=== PATIENT | male | born 1975 | race Caucasian/White ===

== ENCOUNTER → 2020-11-18 | Outpatient (CLI) | payer BC | END | disposition home or self-care (01) | LOC: RADCTMAIN 16:59 | PROVIDERS: ATTEND Nurse Practitioner | DX: Z53.9 Procedure and treatment not carried out, unspecified reason (principal) ==

== ENCOUNTER → 2020-11-18 | Outpatient (CLI) | payer BC ==
--- NOTE | 2020-11-18 17:37 | XR ---
EXAMINATION TYPE: XR KUB DATE OF EXAM: 11/18/2020 COMPARISON: 11/07/2015 HISTORY: Lower abdominal pain TECHNIQUE: FINDINGS: Single supine view shows some phleboliths in the pelvis. There is small calcifications over the left kidney that measure up to 3 mm. There is no sign of intestinal obstruction or pneumoperiton eum. Fecal pattern is normal. I see no evidence of a mass. IMPRESSION: Tiny calcifications over the left kidney probably not changed compared to old exam. Nonac [place] abdomen.
--- NOTE | 2020-11-18 17:42 | CT ---
EXAMINATION TYPE: CT abdomen pelvis wo con DATE OF EXAM: 11/18/2020 COMPARISON: None HISTORY: Pelvic pain and hematuria. CT DLP: 379.3 mGycm Automated exposure control for dose reduction was used. Images obtained from the diaphragm to the floor the pelvis without contrast. Lung bases are clear. There is no pleural effusion. Heart size is normal. There is no pericardial eff usion. Liver spleen stomach pancreas gallbladder appear normal. The bile ducts are not dilated. There is no adrenal mass. Kidneys have normal size and contour. There is no hydronephrosis. Left uret er slightly larger than the right. There are a few small calculi in the lower pole left kidney that m easure up to 5 x 3 mm. I see no definite calculi in the right kidney. There is no retroperitoneal clarence nopathy. Appendix appears normal. Bladder distends smoothly. There is 2 mm calcification in the depen dent urinary bladder. There is no inguinal hernia. There is no evidence of pelvic mass. There are mul tiple phleboliths in the pelvis. There is no mesenteric edema. There is no ascites or free air. There is no evidence of bowel obstruct ion. The lumbar vertebra have normal alignment. Disc spaces are fairly normal. The bony pelvis is intact. Hip joints are intact. IMPRESSION: Small calculi lower pole left kidney similar to old exam. Small bladder calculus. No definite uretera l calculus. There is changing pattern of renal calculi compared to old exam.
== END | disposition home or self-care (01) ==
LOC: RADXRMAIN 17:01
PROVIDERS: ATTEND Nurse Practitioner
DX: N20.0 Calculus of kidney (principal); N21.0 Calculus in bladder; N28.89 Other specified disorders of kidney and ureter
CPT/HCPCS: 74018; 74176

== ENCOUNTER → 2021-11-23 | Outpatient (CLI) | payer BC ==
--- NOTE | 2021-11-23 18:24 | XR ---
EXAMINATION TYPE: XR KUB DATE OF EXAM: 11/23/2021 Comparison: 11/18/2020 Clinical History: 46-year-old male N20.0 Findings: After the bowel gas pattern. Mild overall stool burden. Air and stool extends distally to the rectum. There may be subtle faint nonobstructive 5 mm left lower pole renal calculus, unchanged from prior. Multiple pelvic phlebolith. Impression: Faint 5 mm nonobstructive left lower pole renal calculus. Multiple pelvic phleboliths.
== END | disposition home or self-care (01) ==
LOC: RADXRMAIN 09:34
PROVIDERS: ATTEND Urology
DX: N20.0 Calculus of kidney (principal)
CPT/HCPCS: 74018

== ENCOUNTER → 2022-03-23 | Outpatient (CLI) | payer BC ==
--- NOTE | 2022-03-23 11:48 | XR ---
EXAMINATION TYPE: XR KUB DATE OF EXAM: 03/23/2022 10:30 AM INDICATION: Patient age:Male; 46 years old; Reason for study: N20.1 CALCULUS URETER; COMPARISON: None. TECHNIQUE: One radiographic view of the abdomen was obtained. FINDINGS: The bowel gas pattern is nonspecific without dilated loops of small or large bowel. There i s no evidence for organomegaly or pneumoperitoneum. The osseous structures are intact. No abnormal calcifications are present. Fecal material and gas are demonstrated throughout the colon and rectum. Scattered pelvic phleboliths noted. No definitive renal calculi. IMPRESSION: 1. Nonspecific bowel gas pattern without radiographic evidence for acute process. 2. Scattered pelvic calcifications is likely representing phleboliths.
== END | disposition home or self-care (01) ==
LOC: LABWHC1 09:52
PROVIDERS: ATTEND Urology
DX: N20.1 Calculus of ureter (principal)
CPT/HCPCS: 74018

== ENCOUNTER → 2022-04-05 | Outpatient (CLI) | payer BC ==
--- NOTE | 2022-04-05 09:43 | CT ---
EXAMINATION TYPE: CT abdomen pelvis wo con DATE OF EXAM: 04/05/2022 COMPARISON: 11/18/2020 HISTORY: 46-year-old male N2 0.1, Calculus of ureter CT DLP: 384.4 mGycm. Automated exposure control for dose reduction was used. TECHNIQUE: Contiguous axial scanning of the abdomen and pelvis without IV contrast. Coronal and sagit olu reconstructions performed. FINDINGS: Heart normal size without pericardial effusion. Lung bases clear without pleural effusion. Noncontrast appearance of the liver, gallbladder, adrenal glands, spleen, and pancreas within normal limits. 5 mm nonobstructive left lower pole renal stone. No hydronephrosis on either side. There is a [address] one in the distal left ureter though without any significant hydronephrosis. The finding is new jorge red to 11/18/2020. No dilated small bowel, free fluid, or free air. No mesenteric or retroperitoneal lymphadenopathy. Normal appendix. Mild to moderate stool burden. Probably redundant sigmoid colon. No pericolonic infl ammatory change. Bladder partially distended. Numerous pelvic phleboliths. No abnormal fluid collection in the pelvis or pelvic lymphadenopathy. Bones: Mild degenerative change of the hips. No osseous destructive process. IMPRESSION: 1. A 7 mm stone at the distal left ureter, new from 11/18/2020, but without any significant hydroneph rosis. 2. Nonobstructive 5 mm stone at the lower pole of the left kidney.
== END | disposition home or self-care (01) ==
LOC: RADCTMAIN 08:21
PROVIDERS: ATTEND Urology
DX: N20.1 Calculus of ureter (principal)
CPT/HCPCS: 74176

== ENCOUNTER → 2022-05-04 | Outpatient (CLI) | payer BC ==
[2022-05-04 15:51] LABS: Appearance,Urine Clear (Clear); Bilirubin,Urine Negative (Negative); Blood,Urine Trace (Negative); Color,Urine Yellow (Yellow); Ketones,Urine Negative (Negative); Nitrite,Urine Negative (Negative); Specific Gravity,Urine 1.013 (1.001-1.030); Urobilinogen,Urine 0.2 (0.2,1.0)
[2022-05-04 16:00] LABS: Bacteria,Urine None Seen /HPF (None Seen); Basophils # (A) 0.09 X 10*3/uL (0.00-0.10); Basophils % (A) 1.2 %; Eosinophils # (A) 0.29 X 10*3/uL (0.04-0.35); Eosinophils % (A) 3.9 %; HCT 41.2 % (39.6-50.0); HGB 13.6 g/dL (13.0-17.0); Immature Grans, Automated 0.4 %; Lymphocytes # (A) 3.36 X 10*3/uL (0.90-5.00); Lymphocytes % (A) 45.5 %; MCH 29.8 pg (27.0-32.0); MCV 90.4 fL (80.0-97.0); Mean Platelet Volume 10.2 fL (9.5-12.2); Monocytes # (A) 0.56 X 10*3/uL (0.20-1.00); Monocytes % (A) 7.6 %; NRBC Per 100 WBC 0 /100 WBCS (0.0-0.0); Neutrophils # (A) 3.05 X 10*3/uL (1.80-7.70); Neutrophils % (A) 41.4 %; Platelet Count 289 X 10*3/uL (140-440); RBC 4.56 X 10*6/uL (4.40-5.60); RDW 13.7 % (11.5-14.5); WBC 7.38 X 10*3/uL (4.50-10.00)
[2022-05-04 16:12] LABS: African American GFR (CKD) 82.4 (60.0-200.0); BUN/Creat Ratio 10.08 Ratio (12.00-20.00); Blood Urea Nitrogen 12.1 mg/dL (9.0-27.0); Calcium 9.1 mg/dL (8.7-10.3); Non-African American GFR(CKD) 71.1 (60.0-200.0); Potassium 4.2 mmol/L (3.5-5.5)
== END | disposition home or self-care (01) ==
LOC: LABPAT 08:51
PROVIDERS: ATTEND Urology
DX: Z01.812 Encounter for preprocedural laboratory examination (principal); N20.1 Calculus of ureter; R31.29 Other microscopic hematuria
CPT/HCPCS: 80048; 81001; 85025; 87086

== ENCOUNTER → 2022-09-19 | Outpatient (CLI) | payer BC | END | disposition home or self-care (01) | LOC: RADNMMAIN 09:48 | PROVIDERS: ATTEND Family Medicine | DX: Z53.9 Procedure and treatment not carried out, unspecified reason (principal) ==

== ENCOUNTER → 2022-10-24 | Outpatient (CLI) | payer BC ==
--- NOTE | 2022-10-24 10:19 | CT ---
EXAMINATION TYPE: CT sinus wo con CT DLP: 614 mGycm, Automated exposure control for dose reduction was used. DATE OF EXAM: 10/24/2022 8:48 AM COMPARISON: None. CLINICAL INDICATION:Male, 47 years old with history of L maxillary pain; PHH, Left maxillary pain CONTRAST: None. TECHNIQUE: Multiple thin axial images were obtained through the paranasal sinuses without the use of IV contrast. Additional coronal and sagittal reformatted images were submitted for evaluation. FINDINGS: Frontal sinuses: Normally developed and aerated. Frontal Recess: Clear Maxillary Sinuses: Both maxillary sinuses are normally developed. There is near complete opacificatio n of the left collecting sinus. Right maxillary sinus is clear. Maxillary Infundibula([facility]): The right is clear. Opacified left, No Donna cells identified. Ethmoid sinuses: Normally developed and aerated. Ethmoidal notch: Protected and abutting the lateral lamina. Sphenoid sinuses: Normally developed and aerated. There is sellar sphenoid sinus pneumatization witho ut evidence of dehiscence. No dehiscence of carotid canal. No evidence of optic nerve dehiscence wit hin the sphenoid sinus. Sphenoethmoidal recesses: Clear. Nasal septum: Mildly deviated to the right. Nasal Turbinates: Within normal limits. Mastoid air cells & middle ears: The air cells are clear. The middle ears are grossly unremarkable. Modified Soft tissues & Brain: Partially seen without gross abnormality. Globes are intact. Other: Cribriform plate demonstrates asymmetric Keros classification type 2 cribriform plate on the right an d type I on the left. No evidence of bony dehiscence of skull base. Lamina papyracea is intact without evidence of remote orbital fracture or orbital prolapse into the e thmoid sinus. Pneumatization of the henry nesha. IMPRESSION: Near complete opacification of the left maxillary sinus with opacification of the left ostiomeatal co mplex. The remaining paranasal sinuses are clear.
== END | disposition home or self-care (01) ==
LOC: RADCTMAIN 08:28
PROVIDERS: ATTEND Otolaryngology
DX: J01.00 Acute maxillary sinusitis, unspecified (principal); J34.89 Other specified disorders of nose and nasal sinuses
CPT/HCPCS: 70486

== ENCOUNTER 2024-06-08 12:09 | Emergency (ER) | payer BC ==
--- NOTE | 2024-06-08 12:54 | ED ---
General Adult HPI - General Chief complaint: Allergic Reaction Stated complaint: Allergic Reaction Time Seen by Provider: 06/08/24 12:38 Source: patient, RN notes reviewed, old records reviewed Mode of arrival: ambulatory Limitations: no limitations - History of Present Illness Initial comments: Patient is a 48-year-old male with past medical history remarkable for suspected angioedema who presents emergency department with recurrence of the situation. 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 Unknown if he was exposed to something there as he is exposed to many different things. Worked overnight. At 6 AM this morning he noticed his upper lip was swollen. He went to bed and when he woke up the swelling seem to spread to the left cheek as well as the lower lip. Went to urgent care who sent him here for further evaluation. Did require hospitalization previously for it but did not require intubation. Prior episode was a few years ago. Was not done at our facility. Denies any shortness of breath. Denies any issue with swallowing or breathing. Denies any cough. Has no other acute complaints. Denies any tongue edema. States his voice sounds normal. Presents for further evaluation at this time. States swelling has not significantly worsened since exam just seems to have spread out from his upper lip which was the only focal area of swelling earlier. Upper lip is now less swollen.Took a nap between 830 and 1030 and when he awoke at 1030 he had the edema mostly in his cheek. States it is improving but is here for evaluation. - Related Data Previous Rx's Medication Instructions Recorded Ketorolac [Toradol] 10 mg PO Q8HR 5 Days #15 tab 02/28/22 Tamsulosin [Flomax] 0.4 mg PO DAILY 14 Days #14 cap 02/28/22 EPINEPHrine [Auvi-Q] 0.3 mg IM ONCE PRN #1 each 06/08/24 Famotidine [Pepcid] 20 mg PO DAILY 7 Days #7 tablet 06/08/24 Allergies Allergy/AdvReac Type Severity Reaction Status Date / Time No Known Allergies Allergy Verified 06/08/24 12:22 Review of Systems ROS Statement: Those systems with pertinent positive or pertinent negative responses have been documented in the HPI. Review of Systems: CONST: Denies fever EYES: Denies blurry vision ENT: Endorses facial swelling C/V: Denies Chest pain RESP: Denies shortness of breath GI: Denies abdominal pain : Denies dysuria SKIN: Denies rash. MSK: Denies joint pain. NEURO: Denies headache ROS Other: All systems not noted in ROS Statement are negative. Past Medical History Past Medical History: No Reported History Additional Past Medical History / Comment(s): kidney stone History of Any Multi-Drug Resistant Organisms: None Reported Past Surgical History: No Surgical Hx Reported Past Anesthesia/Blood Transfusion Reactions: No Reported Reaction Past Psychological History: No Psychological Hx Reported Smoking Status: Never smoker Past Alcohol Use History: None Reported Past Drug Use History: None Reported General Exam - General Exam Comments Initial Comments: General: Appears in no acute distress. HEAD: Normal with no signs of head trauma. EYES: EOMI. ENT: Hearing grossly intact, normal oropharynx. No tongue edema. No posterior oropharyngeal edema. Uvula is midline. Patient does have upper and lower lip edema with left cheek edema. Nontender. No stridor auscultated. Tolerating oral secretions. No issue with swallowing or breathing. RESPIRATORY: Clear breath sounds bilaterally. No wheezes, rales, or rhonchi. Hypoxia. C/V: Regular rate and rhythm. S1 and S2 auscultated, no edema, peripheral pulses 2+ and intact throughout ABD: Abd is soft, nontender, nondistended EXT: Normal range of motion, no obvious deformity SKIN: No rashes or lesions observed on exposed skin. NEURO: Alert and oriented x 4. Limitations: no limitations Course Vital Signs 06/08/24 06/08/24 06/08/24 12:18 12:50 14:30 Temperature 98.7 F Pulse Rate 83 83 86 Respiratory 18 18 16 Rate Blood Pressure 181/113 143/102 131/88 O2 Sat by Pulse 99 97 96 Oximetry 06/08/24 16:00 Temperature Pulse Rate 79 Respiratory 18 Rate Blood Pressure 134/92 O2 Sat by Pulse 97 Oximetry Medical Decision Making - Medical Decision Making Was pt. sent in by a medical professional or institution (, PA, POWER [employer] CLIPPER, urgent care, hospital, or retirement...) When possible be specific @ -No Did you speak to anyone other than the patient for history (EMS, parent, family, police, friend...)? What history was obtained from this source @ -No Did you review nursing and triage notes (agree or disagree)? Why? @ -I reviewed and agree with nursing and triage notes Were old charts reviewed (outside hosp., previous admission, EMS record, old EKG, old radiological studies, urgent care reports/EKG's, retirement records)? Report findings @ -No old charts were reviewed Differential Diagnosis (chest pain, altered mental status, abdominal pain women, abdominal pain men, vaginal bleeding, weakness, fever, dyspnea, syncope, headache, dizziness, GI bleed, back pain, seizure, CVA, palpatations, mental health, musculoskeletal)? @ -Angioedema, allergic reaction, anaphylaxis. This list is not all inclusive. EKG interpreted by me (3pts min.). @ -As above X-rays interpreted by me (1pt min.). @ -X-ray reveals no obvious acute cardiopulmonary process. CT interpreted by me (1pt min.). @ -None done U/S interpreted by me (1pt. min.). @ -None done What testing was considered but not performed or refused? (CT, X-rays, U/S, labs)? Why? @ -None What meds were considered but not given or refused? Why? @ -None Did you discuss the management of the patient with other professionals (professionals i.e. , PA, POWER HA[employer] CLIPPER, lab, RT, psych nurse, social worker palliative care, taxi proprietor, teacher, financial aid officer, manager of case)? Give summary @ -No Was smoking cessation discussed for >3mins.? @ -No Was critical care preformed (if so, how long)? @ -yes, 45 minutes. frequent re-evaluations. Were there social determinants of health that impacted care today? How? (Homelessness, low income, unemployed, alcoholism, drug addiction, transportation, low edu. Level, literacy, decrease access to med. care, fdc, rehab)? @ -No Was there de-escalation of care discussed even if they declined (Discuss DNR or withdrawal of care, Hospice)? DNR status @ -No What co-morbidities impacted this encounter? (DM, HTN, Smoking, COPD, CAD, Cancer, CVA, ARF, Chemo, Hep., AIDS, mental health diagnosis, sleep apnea, morbid obesity)? @ -History of allergic reaction/angioedema to the face similar to today's e pisode Was patient admitted / discharged? Hospital course, mention meds given and route, prescriptions, significant lab abnormalities, going to OR and other pertinent info. @ -Patient presents with what appears to be angioedema to the face. No signs of airway compromise. Tolerating secretions. No stridor. Seems to be localized to the lip and left cheek. Began this morning at 6 AM and has pro gressively worsened since. Unknown cause. Has occurred previously for the patient. Vitals are within acceptable limits except for mild hypertension. Originally presented to urgent care but was sent here for further evaluation. Patient will be administered allergy cocktail consisting of Solu-Medrol, famotidine, Benadryl as well as IV fluids. We will continue to monitor the patient. Basic labs, EKG, chest x-ray will be obtained. Patient will be monitored for at least a few hours here in the department for any signs of improvement or worsening of his symptoms. Patient was in agreement this plan. EKG showed no signs of acute ischemia. Chest x-ray unremarkable. Laboratory studies unremarkable. Patient observed a total of 4 hours here in the emergency department. Patient's swelling nearly completely resolved over that period of time. Patient never experienced any difficulty in breathing, nausea or vomiting, difficulty in swallowing or issues with tolerating his oral secretions. States he feels improved and would like to go home and I believe this is reasonable. We discussed at length potential causes for his facial swelling. This includes allergic reaction versus familial angioedema as he takes no medications at home and no YISEL inhibitor's. He does have many exposures at work and we did discuss contact precautions including use of an N95 as well as nitrile gloves which are present at his facility. Recommended return to the emergency department if any worsening symptoms. Recommend follow-up with PCP in the next 1 to 3 days as well as follow-up with an ammonia worker for further testing. He was in agreement this plan. Urgent care already sent prescriptions for oral prednisone and famotidine to his pharmacy. I will provide an additional prescription for famotidine as well as a prescription for an EpiPen. He was in agreement this plan. Strict return precautions discussed. Patient was reevaluated frequently for improvement or worsening symptoms. Continued to improve throughout his stay with near resolution by the time of discharge. I instructed the patient to follow up with their PCP in the next 1-3 days. I explained that the patient should return to the emergency department if they experience any worsening symptoms. Strict return precautions were discussed with the patient. The patient expressed understanding of these instructions. I answered all questions that the patient had. The patient was discharged home in good condition with their prescriptions and follow up information. Undiagnosed new problem with uncertain prognosis? @ -No Drug Therapy requiring intensive monitoring for toxicity (Heparin, Nitro, Insulin, Cardizem)? @ -No Were any procedures done? @ -No Diagnosis/symptom? @ -Allergic reaction, angioedema Acute, or Chronic, or Acute on Chronic? @ -Acute Uncomplicated (without systemic symptoms) or Complicated (systemic symptoms)? @ -Complicated Side effects of treatment? @ -None Exacerbation, Progression, or Severe Exacerbation] @ -No Poses a threat to life or bodily function? @ -Unlikely at this time - Lab Data Result diagrams: 06/08/24 12:50 06/08/24 12:50 Lab Results 06/08/24 06/08/24 Range/Units 12:50 12:50 WBC 6.4 (3.8-10.6) k/uL RBC 5.25 (4.30-5.90) m/uL Hgb 15.6 (13.0-17.5) gm/dL Hct 47.0 (39.0-53.0) % MCV 89.5 (80.0-100.0) fL MCH 29.7 (25.0-35.0) pg MCHC 33.2 (31.0-37.0) g/dL RDW 13.3 (11.5-15.5) % Plt Count 284 (150-450) k/uL MPV 7.6 Neutrophils % 57 % Lymphocytes % 34 % Monocytes % 4 % Eosinophils % 1 % Basophils % 1 % Neutrophils # 3.7 (1.3-7.7) k/uL Lymphocytes # 2.2 (1.0-4.8) k/uL Monocytes # 0.3 (0-1.0) k/uL Eosinophils # 0.1 (0-0.7) k/uL Basophils # 0.1 (0-0.2) k/uL Sodium 139 (137-145) mmol/L Potassium 3.8 (3.5-5.1) mmol/L Chloride 105 (98-107) mmol/L Carbon Dioxide 29 (22-30) mmol/L Anion Gap 5 mmol/L BUN 14 (9-20) mg/dL Creatinine 1.11 (0.66-1.25) mg/dL Est GFR (CKD-EPI)AfAm 89 (>60 ml/min/1.73 sqM) Est GFR (CKD-EPI)NonAf 77 (>60 ml/min/1.73 sqM) Glucose 104 H (74-99) mg/dL Calcium 9.4 (8.4-10.2) mg/dL Total Bilirubin 1.5 H (0.2-1.3) mg/dL AST 23 (17-59) U/L ALT 23 (4-49) U/L Alkaline Phosphatase 64 (38-126) U/L Total Protein 7.2 (6.3-8.2) g/dL Albumin 4.6 (3.5-5.0) g/dL - EKG Data -: EKG Interpreted by Me EKG Comments: 12-lead Electrocardiogram Interpretation Note EKG was reviewed and interpreted by myself. 12-lead ECG performed at [facility] is interpreted by me as revealing normal with right bundle branch block at a rate of 78 beats per minute. [place] is normal. IA interval is 159 ms, QRS durations 166 ms, QTc is 444 ms.. There were no ST or T wave abnormalities to suggest han cardial ischemia or injury. R wave progression across the precordium was satisfactory. By my interpretation this EKG is non-diagnostic for acute ischemia. Critical Care Time Critical Care Time: Yes Total Critical Care Time: 45 Critical Care Time: frequent re-evaluations for patent airway.. Disposition Clinical Impression: Angioedema, Allergic reaction Disposition: HOME SELF-CARE Condition: Good Instructions (If sedation given, give patient instructions): Angioedema (ED) Additional Instructions: Your diagnosis is allergic reaction versus angioedema. Her symptoms are nearly resolved upon discharge from the ER. Please take at least 5 days of oral prednisone provided by the urgent care as well as at least 1 week of oral Pepcid provided by the urgent care. I will send a prescription for an EpiPen to your pharmacy. You need follow-up with an ammonia worker as well as your primary care in the next 1 to 3 days. Please return to the emergency department if worsening symptoms. This includes worsening shortness of breath, breathing, nausea, vomiting, worsening swelling. Prescriptions: EPINEPHrine [Auvi-Q] 0.3 mg IM ONCE PRN #1 each PRN Reason: Anaphylaxis Famotidine [Pepcid] 20 mg PO DAILY 7 Days #7 tablet Is patient prescribed a controlled substance at d/c from ED?: No Referrals: hCarlie Collins MD [Primary Care Provider] - 1-2 days Time of Disposition: 16:50
[2024-06-08] MEDS: SODIUM CHLORIDE 0.9% 1,000 ML IV STA (13:04)
[2024-06-08 13:06] LABS: Basophils # (A) 0.1 k/uL (0-0.2); Basophils % (A) 1 %; Eosinophils # (A) 0.1 k/uL (0-0.7); Eosinophils % (A) 1 %; HGB 15.6 gm/dL (13.0-17.5); Lymphocytes # (A) 2.2 k/uL (1.0-4.8); Lymphocytes % (A) 34 %; MCH 29.7 pg (25.0-35.0); MCHC 33.2 g/dL (31.0-37.0); MCV 89.5 fL (80.0-100.0); Mean Platelet Volume 7.6; Monocytes # (A) 0.3 k/uL (0-1.0); Monocytes % (A) 4 %; Neutrophils # (A) 3.7 k/uL (1.3-7.7); Neutrophils % (A) 57 %; Platelet Count 284 k/uL (150-450); RBC 5.25 m/uL (4.30-5.90); RDW 13.3 % (11.5-15.5); WBC 6.4 k/uL (3.8-10.6)
[2024-06-08] MEDS: methylPREDNISolone SOD SUCCI 125 MG/2 ML VIAL IV STA (13:07)
[2024-06-08] MEDS: diphenhydrAMINE 50 MG/ML 1 ML VIAL IVP STA (13:09)
[2024-06-08] MEDS: FAMOTIDINE 20 MG/2 ML VIAL IV STA (13:13)
[2024-06-08 13:16] LABS: ALT 23 U/L (4-49); AST 23 U/L (17-59); African American GFR (CKD) 89 (>60 ml/min/1.73 sqM); Albumin 4.6 g/dL (3.5-5.0); Alkaline Phosphatase 64 U/L (38-126); Anion Gap 5 mmol/L; Blood Urea Nitrogen 14 mg/dL (9-20); Calcium 9.4 mg/dL (8.4-10.2); Carbon Dioxide 29 mmol/L (22-30); Chloride 105 mmol/L (98-107); Glucose 104 mg/dL (74-99); Non-African American GFR(CKD) 77 (>60 ml/min/1.73 sqM); Potassium 3.8 mmol/L (3.5-5.1); Sodium 139 mmol/L (137-145); Total Bilirubin 1.5 mg/dL (0.2-1.3); Total Protein 7.2 g/dL (6.3-8.2)
--- NOTE | 2024-06-08 13:48 | XR ---
EXAMINATION TYPE: XR chest 1V portable DATE OF EXAM: 06/08/2024 1:27 PM COMPARISON: None CLINICAL INDICATION: Male, 48 years old with history of allergic reaction; TECHNIQUE: XR chest 1V portable Frontal view of the chest. FINDINGS: Lungs/Pleura: There is no evidence of pleural effusion, focal consolidation, or pneumothorax. Pulmonary vascularity: Unremarkable. Heart/mediastinum: Cardiomediastinal silhouette is unremarkable. Musculoskeletal: No acute osseous pathology. IMPRESSION: No acute cardiopulmonary disease/process. [facility], , 06/08/2024 1:45 PM
[2024-06-08 16:07] VITALS: RESP 18
[2024-06-08 17:06] VITALS: BP 130/91; PULSE 84; TEMP 97.9
== END 2024-06-08 17:08 | disposition home or self-care (01) ==
LOC: EC 12:09
DX: T78.3XXA Angioneurotic edema, initial encounter (principal)
CPT/HCPCS: 96374; 96375 ×2; 96361; 36415; 93005; 80053; 85025; 71045; 99284; J1200; J3490; J2919; 99285